=== PATIENT | male | born 1935 | race Caucasian/White ===

== ENCOUNTER 2018-03-31 08:52 | Inpatient (IN) | payer MEDICARE ==
[2018-03-31] MEDS ORDERED: Tuberculin, PPD 5 Units/0.1 ML 1 ML MDV IDERM ONE (15:25)
[2018-03-31] MEDS ORDERED: Magnesium Hydroxide 400 MG/5 ML Susp 30 ML Cup PO PRN (15:26)
--- NOTE | 2018-03-31 15:32 | PCM.HP ---
H&P History of Present Illness - General Date of Service: 03/31/18 Admit Problem/Dx: Admission Diagnosis/Problem Admission Diagnosis/Problem Weakness Source of Information: Patient, Old Records, Other (discharge forms) - History of Present Illness Initial Comments - Free Text/Narative: This is a 83yo M to be admitted to [facility] bed for post-op left knee arthroplasty. Patient is aware he is at the hospital but not exactly sure the town although he did live in [place] for most of his life and now in [place]. He is unsure of the date or time. He is here with his daughter who has bought the [employer] and will be managing that from now. Location: Reports: Lower Extremity, Left Worsens with: Reports: Movement Associated Symptoms: Reports: Weakness - Related Data Allergies/Adverse Reactions: Allergies Allergy/AdvReac Type Severity Reaction Status Date / Time No Known Allergies Allergy Verified 03/31/18 10:53 Home Medications: Home Meds Acetaminophen [Tylenol] 650 mg PO Q4HR PRN 03/31/18 [History] Aspirin [Adult Low Dose Aspirin EC] 81 mg PO DAILY 03/31/18 [History] Cyanocobalamin (Vitamin B-12) [B-12] 1,000 mcg PO DAILY 03/31/18 [History] Diclofenac Sodium 4 gm TP QID 03/31/18 [History] Donepezil [Aricept] 10 mg PO BEDTIME 03/31/18 [History] Enoxaparin Sodium [Lovenox] 40 mg SQ DAILY 03/31/18 [History] Furosemide 20 mg PO DAILY 03/31/18 [History] Magnesium Hydroxide [Milk of Magnesia] 30 ml PO DAILY PRN 03/31/18 [History] Melatonin 3 mg PO BEDTIME 03/31/18 [History] Meloxicam 15 mg PO DAILY 03/31/18 [History] Metoprolol Tartrate 12.5 mg PO BID 03/31/18 [History] Omeprazole [priLOSEC OTC] 20 mg PO DAILY 03/31/18 [History] Simvastatin [Zocor] 10 mg PO BEDTIME 03/31/18 [History] Triamcinolone Acetonide [IJD: Triamcinolone Acetonide 0.1% Crm] 1 gm .XX BID 12/18 [History] traMADol [Ultram] 50 mg PO Q6H PRN MDD 400mg 03/31/18 [History] Social & Family History - Tobacco Use Smoking Status *Q: Former Smoker Used Tobacco, but Quit: Yes Month/Year Tobacco Last Used: 2007 - Caffeine Use Caffeine Use: Reports: Coffee Other Caffeine Use: 1 pot a day (12 cups) - Recreational Drug Use Recreational Drug Use: No H&P Review of Systems - Review of Systems: Review Of Systems: ROS reveals no pertinent complaints other than HPI. Exam - Exam Exam: See Below - Vital Signs Weight: 73.663 kg - Exam General: Alert, Cooperative. No: Oriented HEENT: PERRLA, Conjunctiva Clear, EACs Clear, EOMI Neck: Supple, Trachea Midline Lungs: Clear to Auscultation, Normal Respiratory Effort Cardiovascular: Regular Rate, Regular Rhythm GI/Abdominal Exam: Normal Bowel Sounds Back Exam: Normal Inspection Extremities: Pedal Edema (1+) Peripheral Pulses: 2+: Dorsalis Pedis (L), Dorsalis Pedis (R) Skin: Warm, Dry, Intact Neurological: Cranial Nerves Intact Neuro Extensive - Mental Status: Alert, Normal Mood/Affect - Problem List (1) Status post left knee replacement SNOMED Code(s): 1788395962757, 3281946362296 ICD Code: Z96.652 - PRESENCE OF LEFT ARTIFICIAL KNEE JOINT Status: Acute Current Visit: Yes (2) Weakness SNOMED Code(s): 59892378 ICD Code: R53.1 - WEAKNESS Status: Acute Current Visit: Yes (3) Dementia SNOMED Code(s): 52839353 ICD Code: F03.90 - UNSPECIFIED DEMENTIA WITHOUT BEHAVIORAL DISTURBANCE Status: Acute Current Visit: Yes (4) HTN (hypertension) SNOMED Code(s): 82224519 ICD Code: I10 - ESSENTIAL (PRIMARY) HYPERTENSION Status: Chronic Priority : Low Current Visit: Yes Qualifiers: Hypertension type: essential hypertension Qualified Code(s): I10 - Essential (primary) hypertension (5) COPD (chronic obstructive pulmonary disease) SNOMED Code(s): 04824391 ICD Code: J44.9 - CHRONIC OBSTRUCTIVE PULMONARY DISEASE, UNSPECIFIED Status : Chronic Priority: Medium Current Visit: Yes Qualifiers: Chronic bronchitis type: unspecified Problem List Initiated/Reviewed/Updated: Yes Orders Last 24hrs: Active Orders 24 hr Category Date Time Status Patient Status [ADT] Routine ADT 03/31/18 15:25 Ordered Consult to Property Maintenance Supervisor [CONS] Routine Cons 03/31/18 15:25 Ordered Consult to Home Health [CONS] Routine Cons 03/31/18 15:25 Ordered Consult to Infection Prevention [CONS] Routine Cons 03/31/18 15:25 Ordered Consult to Plastic Mould Maker [CONS] Routine Cons 03/31/18 15:25 Ordered OT Evaluation and Treatment [CONS] Routine Cons 03/31/18 15:25 Ordered PT Evaluation and Treatment [CONS] Routine Cons 03/31/18 15:25 Ordered CULTURE MRSA SURVEY [RM] Routine Lab 03/31/18 15:15 Ordered Acetaminophen [Tylenol] Med 03/31/18 15:26 Ordered 650 mg PO Q4HR PRN Aspirin [Halfprin] Med 04/01/18 08:00 Ordered 81 mg PO DAILY Cyanocobalamin (Vitamin B12) [Vitamin B12] Med 04/01/18 08:00 Ordered 1,000 mcg PO DAILY Diclofenac Sodium [Diclofenac Sodium] Med 03/31/18 16:00 Ordered 4 gm TP QID Donepezil [Aricept] Med 03/31/18 20:00 Ordered 10 mg PO BEDTIME Enoxaparin [Lovenox] Med 04/01/18 08:00 Ordered 40 mg SUBCUT DAILY Furosemide [Lasix] Med 04/01/18 08:00 Ordered 20 mg PO DAILY Magnesium Hydroxide [Milk of Magnesia] Med 03/31/18 15:26 Ordered 30 ml PO DAILY PRN Melatonin Med 03/31/18 20:00 Ordered 3 mg PO BEDTIME Meloxicam [Mobic] Med 04/01/18 08:00 Ordered 7.5 mg PO DAILY Metoprolol Tartrate [Lopressor] Med 03/31/18 20:00 Ordered 12.5 mg PO BID Omeprazole [priLOSEC OTC] Med 04/01/18 08:00 Ordered 20 mg PO DAILY Simvastatin [Zocor] Med 03/31/18 20:00 Ordered 10 mg PO BEDTIME Triamcinolone Acetonide [Triamcinolone Acetonide 0.1% Med 03/31/18 20:00 Ordered Crm] 1 gm .XX BID Tuberculin, PPD [Aplisol] Med 03/31/18 15:25 Once 5 unit IDERM ONETIME ONE traMADol [Ultram] Med 03/31/18 15:26 Ordered 50 mg PO Q6H PRN Medication Orders Tuberculin PPD (Aplisol) 5 unit IDERM ONETIME ONE Stop: 03/31/18 15:26 Assessment/Plan Comment:: S/P Left knee Arthroplasty - continue PT/OT and rehab. Continue lovenox daily. Counseled on using call light for assistance and any ambulation or transfer. - Continue on tramadol 25mg QID as directed HTN - controlled COPD - Stable HLP - on atorvastatin. Dementia - Continue on current medications.
[2018-03-31] MEDS: Diclofenac Sodium 1% Gel 100 GM Tube TOP SCH ×2 (17:06→20:13)
[2018-03-31] MEDS ORDERED: Triamcinolone Acetonide 0.1% Crm 15 GM Tube TOP SCH (20:00)
[2018-03-31] MEDS: Donepezil 5 MG Tab PO SCH (20:07)
[2018-03-31] MEDS: Simvastatin 10 MG Tab PO SCH (20:07)
[2018-03-31] MEDS: Melatonin 3 MG Tab PO SCH (20:07)
[2018-03-31] MEDS: Metoprolol Tartrate 25 MG Tab PO SCH (20:09)
[2018-03-31] MEDS: traMADol 50 MG Tab PO PRN (20:22)
[2018-04-01] MEDS: traMADol 50 MG Tab PO PRN ×3 (06:30→18:36)
[2018-04-01] MEDS: Omeprazole 20 MG Cap.CR PO SCH (06:30)
[2018-04-01] MEDS ORDERED: Triamcinolone Acetonide 0.1% Crm 15 GM Tube TOP PRN (08:00)
[2018-04-01] MEDS: Enoxaparin 40 MG/0.4 ML Syringe SUBCUT SCH (08:35)
[2018-04-01] MEDS: Aspirin 81 MG Tab.EC PO SCH (08:36)
[2018-04-01] MEDS: Furosemide 20 MG Tab PO SCH (08:36)
[2018-04-01] MEDS: Cyanocobalamin (Vitamin B12) 1,000 MCG Tab PO SCH (08:37)
[2018-04-01] MEDS: Metoprolol Tartrate 25 MG Tab PO SCH ×2 (08:37→20:03)
[2018-04-01] MEDS ORDERED: Tuberculin, PPD 5 Units/0.1 ML 1 ML MDV IDERM ONE (10:00)
[2018-04-01] MEDS: Melatonin 3 MG Tab PO SCH (20:03)
[2018-04-01] MEDS: Donepezil 5 MG Tab PO SCH (20:03)
[2018-04-01] MEDS: Simvastatin 10 MG Tab PO SCH (20:07)
[2018-04-01] MEDS: Diclofenac Sodium 1% Gel 100 GM Tube TOP SCH (20:12)
[2018-04-02] MEDS: traMADol 50 MG Tab PO PRN ×3 (05:21→20:47)
[2018-04-02] MEDS: Omeprazole 20 MG Cap.CR PO SCH (06:56)
[2018-04-02] MEDS: Aspirin 81 MG Tab.EC PO SCH (08:15)
[2018-04-02] MEDS: Enoxaparin 40 MG/0.4 ML Syringe SUBCUT SCH (08:15)
[2018-04-02] MEDS: Furosemide 20 MG Tab PO SCH (08:16)
[2018-04-02] MEDS: Cyanocobalamin (Vitamin B12) 1,000 MCG Tab PO SCH (08:17)
[2018-04-02] MEDS: Metoprolol Tartrate 25 MG Tab PO SCH ×2 (08:17→19:26)
[2018-04-02] MEDS: Tamsulosin 0.4 MG Cap.ER PO SCH (10:02)
[2018-04-02] MEDS: Acetaminophen 325 MG Tab PO PRN (17:04)
[2018-04-02] MEDS ORDERED: Donepezil 10 MG Tab ONE (19:25)
[2018-04-02] MEDS: Melatonin 3 MG Tab PO SCH (19:26)
[2018-04-02] MEDS: Donepezil 5 MG Tab PO SCH (19:26)
[2018-04-02] MEDS: Simvastatin 10 MG Tab PO SCH (19:27)
[2018-04-03] MEDS: Omeprazole 20 MG Cap.CR PO SCH (06:03)
[2018-04-03] MEDS: Aspirin 81 MG Tab.EC PO SCH (07:26)
[2018-04-03] MEDS: traMADol 50 MG Tab PO PRN ×2 (07:26→19:54)
[2018-04-03] MEDS: Furosemide 20 MG Tab PO SCH (07:26)
[2018-04-03] MEDS: Cyanocobalamin (Vitamin B12) 1,000 MCG Tab PO SCH (07:29)
[2018-04-03] MEDS: Metoprolol Tartrate 25 MG Tab PO SCH ×2 (07:29→19:55)
[2018-04-03] MEDS: Enoxaparin 40 MG/0.4 ML Syringe SUBCUT SCH (07:31)
[2018-04-03] MEDS: Tamsulosin 0.4 MG Cap.ER PO SCH (10:12)
[2018-04-03] MEDS: Diclofenac Sodium 1% Gel 100 GM Tube TOP SCH ×3 (12:30→19:56)
[2018-04-03] MEDS: Donepezil 5 MG Tab PO SCH (19:54)
[2018-04-03] MEDS: Simvastatin 10 MG Tab PO SCH (19:54)
[2018-04-03] MEDS: Melatonin 3 MG Tab PO SCH (19:54)
[2018-04-03] MEDS: Acetaminophen 325 MG Tab PO PRN (19:55)
[2018-04-04] MEDS: Aspirin 81 MG Tab.EC PO SCH (09:18)
[2018-04-04] MEDS: Furosemide 20 MG Tab PO SCH (09:18)
[2018-04-04] MEDS: Cyanocobalamin (Vitamin B12) 1,000 MCG Tab PO SCH (09:19)
[2018-04-04] MEDS: Enoxaparin 40 MG/0.4 ML Syringe SUBCUT SCH (09:19)
[2018-04-04] MEDS: Tamsulosin 0.4 MG Cap.ER PO SCH (09:19)
[2018-04-04] MEDS: Diclofenac Sodium 1% Gel 100 GM Tube TOP SCH ×4 (09:26→19:32)
[2018-04-04] MEDS: Metoprolol Tartrate 25 MG Tab PO SCH ×2 (10:13→19:29)
[2018-04-04] MEDS: Omeprazole 20 MG Cap.CR PO SCH (10:14)
[2018-04-04] MEDS: Donepezil 5 MG Tab PO SCH (19:25)
[2018-04-04] MEDS: Melatonin 3 MG Tab PO SCH (19:26)
[2018-04-04] MEDS: Acetaminophen 325 MG Tab PO PRN (19:26)
[2018-04-04] MEDS: Simvastatin 10 MG Tab PO SCH (19:27)
[2018-04-04] MEDS: traMADol 50 MG Tab PO PRN (19:28)
[2018-04-05] MEDS: Diclofenac Sodium 1% Gel 100 GM Tube TOP SCH ×4 (08:15→20:00)
[2018-04-05] MEDS: Furosemide 20 MG Tab PO SCH (08:15)
[2018-04-05] MEDS: Enoxaparin 40 MG/0.4 ML Syringe SUBCUT SCH (08:15)
[2018-04-05] MEDS: Cyanocobalamin (Vitamin B12) 1,000 MCG Tab PO SCH (08:16)
[2018-04-05] MEDS: Metoprolol Tartrate 25 MG Tab PO SCH ×2 (08:16→19:30)
[2018-04-05] MEDS: Omeprazole 20 MG Cap.CR PO SCH (08:16)
[2018-04-05] MEDS: Aspirin 81 MG Tab.EC PO SCH (08:16)
[2018-04-05] MEDS: Tamsulosin 0.4 MG Cap.ER PO SCH (10:04)
[2018-04-05] MEDS ORDERED: LORazepam 1 MG Tab PO ONE (19:10)
[2018-04-05] MEDS: Melatonin 3 MG Tab PO SCH (19:26)
[2018-04-05] MEDS: Donepezil 5 MG Tab PO SCH (19:26)
[2018-04-05] MEDS: Simvastatin 10 MG Tab PO SCH (19:28)
[2018-04-05] MEDS: Acetaminophen 325 MG Tab PO PRN (19:28)
[2018-04-05] MEDS: traMADol 50 MG Tab PO PRN (20:48)
[2018-04-06] MEDS: Omeprazole 20 MG Cap.CR PO SCH (06:04)
[2018-04-06] MEDS: Aspirin 81 MG Tab.EC PO SCH (07:20)
[2018-04-06] MEDS: Furosemide 20 MG Tab PO SCH (07:21)
[2018-04-06] MEDS: Cyanocobalamin (Vitamin B12) 1,000 MCG Tab PO SCH (07:21)
[2018-04-06] MEDS: Enoxaparin 40 MG/0.4 ML Syringe SUBCUT SCH (07:23)
[2018-04-06] MEDS: Metoprolol Tartrate 25 MG Tab PO SCH (07:23)
[2018-04-06] MEDS: Diclofenac Sodium 1% Gel 100 GM Tube TOP SCH ×2 (07:24→13:29)
[2018-04-06] MEDS: traMADol 50 MG Tab PO PRN (09:15)
[2018-04-06] MEDS: Tamsulosin 0.4 MG Cap.ER PO SCH (09:56)
--- NOTE | 2018-04-06 14:30 | PCM.PN ---
- General Info Date of Service: 04/06/18 Subjective Update: This is an 83 yo M who is alert but orientated only to reading the charted date on the wall. He denies any concerns today. He does not recall why he is here but understands he is in the hospital in [place]. Functional Status: Reports: Pain Controlled, Tolerating Diet - Review of Systems General: Reports: Weakness HEENT: Reports: No Symptoms Pulmonary: Reports: No Symptoms Cardiovascular: Reports: No Symptoms Gastrointestinal: Reports: No Symptoms Genitourinary: Reports: No Symptoms Musculoskeletal: Reports: No Symptoms Skin: Reports: No Symptoms - Patient Data Vitals - Most Recent: Last Vital Signs Temp 36.7 C 04/06/18 07:36 Pulse 58 L 04/06/18 07:36 Resp 18 04/06/18 07:36 BP 123/53 L 04/06/18 07:36 Pulse Ox 96 04/06/18 07:36 Weight - Most Recent: 69.91 kg I&O - Last 24 Hours: Intake & Output 04/05/18 04/06/18 04/06/18 22:59 06:59 14:59 Intake Total 200 Output Total 400 Balance -200 Lab Results Last 24 Hours: Laboratory Results - last 24 hr 04/06/18 04/06/18 Range/Units 05:53 09:00 WBC 5.5 (4.0-11.0) K/uL RBC 3.20 L (4.50-6.50) M/uL Hgb 9.0 L D (13.0-18.0) g/dL Hct 28.2 L D (40.0-54.0) % MCV 88 (76-96) fL MCH 28.1 (27.0-32.0) pg MCHC 31.9 (31.0-35.0) g/dL RDW 12.8 (11.0-16.0) % Plt Count 213 D (150-400) K/uL MPV 9.6 (6.0-10.0) fL Neut % (Auto) 65.2 (45.0-70.0) % Lymph % (Auto) 19.4 L (20.0-40.0) % Park % (Auto) 7.7 (3.0-10.0) % Eos % (Auto) 6.8 H (1.0-5.0) % Baso % (Auto) 0.9 H (0.0-0.5) % Neut # (Auto) 3.57 (2.00-7.50) K/uL Lymph # (Auto) 1.06 L (1.50-4.00) K/uL [place] # (Auto) 0.42 (0.20-0.80) K/uL Eos # (Auto) 0.37 (0.04-0.40) K/uL Baso # (Auto) 0.05 (0.02-0.10) K/uL Urine Color Yellow Urine Appearance Clear (CLEAR) Urine pH 7.5 (5.0-8.0) Ur Specific Palms 1.020 (1.003-1.030) Urine Protein Trace H (NEGATIVE) mg/dL Urine Glucose (UA) Negative (NEGATIVE) mg/dL Urine Ketones Negative (NEGATIVE) mg/dL Urine Occult Blood Negative (NEGATIVE) Urine Nitrite Negative (NEGATIVE) Urine Bilirubin Negative (NEGATIVE) Urine Urobilinogen 1.0 (0.2-1.0) E.U./dL Ur Leukocyte Esterase Negative (NEGATIVE) Urine RBC Not seen /HPF Urine WBC Not seen /HPF Ur Squamous Epith Cells Rare /HPF Urine Bacteria Rare /HPF Med Orders - Current: Current Medications Acetaminophen (Tylenol) 650 mg PO Q4HR PRN PRN Reason: Pain Last Admin: 04/05/18 19:28 Dose: 650 mg Aspirin (Halfprin) 81 mg PO DAILY [facility] Last Admin: 04/06/18 07:20 Dose: 81 mg Cyanocobalamin (Vitamin B12) 1,000 mcg PO DAILY [facility] Last Admin: 04/06/18 07:21 Dose: 1,000 mcg Diclofenac Sodium (Voltaren 1% Gel) 100 gm TOP QID [facility] Last Admin: 04/06/18 13:29 Dose: Not Given Donepezil HCl (Aricept) 10 mg PO BEDTIME [facility] Last Admin: 04/05/18 19:26 Dose: 10 mg Enoxaparin Sodium (Lovenox) 40 mg SUBCUT DAILY [facility] Stop: 04/14/18 08:01 Last Admin: 04/06/18 07:23 Dose: 40 mg Furosemide (Lasix) 20 mg PO DAILY [facility] Last Admin: 04/06/18 07:21 Dose: 20 mg Magnesium Hydroxide (Milk Of Magnesia) 30 ml PO DAILY PRN PRN Reason: Constipation Melatonin (Melatonin) 3 mg PO BEDTIME [facility] Last Admin: 04/05/18 19:26 Dose: 3 mg Meloxicam (Mobic) 7.5 mg PO DAILY [facility] Last Admin: 04/06/18 07:21 Dose: 7.5 mg Metoprolol Tartrate (Lopressor) 12.5 mg PO BID [facility] Last Admin: 04/06/18 07:23 Dose: 12.5 mg Omeprazole (Omeprazole) 20 mg PO ACBREAKFAST [facility] Last Admin: 04/06/18 06:04 Dose: 20 mg Simvastatin (Zocor) 10 mg PO BEDTIME [facility] Last Admin: 04/05/18 19:28 Dose: 10 mg Tamsulosin HCl (Flomax) 0.4 mg PO PCBREAKFAST [facility] Last Admin: 04/06/18 09:56 Dose: 0.4 mg Tramadol HCl (Ultram) 50 mg PO Q6H PRN PRN Reason: Pain Last Admin: 04/06/18 09:15 Dose: 50 mg Triamcinolone Acetonide (Triamcinolone Acetonide 0.1% Crm) 0 gm TOP BID PRN PRN Reason: Dryness Discontinued Medications Diclofenac Sodium (Voltaren 1% Gel) 0 gm TOP QID [facility] Last Admin: 04/01/18 20:12 Dose: Not Given Donepezil HCl (Aricept) Confirm Administered Dose 10 mg .ROUTE .STK-MED ONE Stop: 04/02/18 19:26 Last Admin: 04/02/18 20:09 Dose: Not Given Lorazepam (Ativan) 1 mg PO ONETIME ONE Stop: 04/05/18 19:11 Last Admin: 04/05/18 19:30 Dose: 1 mg Triamcinolone Acetonide (Triamcinolone Acetonide 0.1% Crm) 0 gm TOP BID [facility] Stop: 04/01/18 00:08 Last Admin: 03/31/18 20:14 Dose: Not Given Tuberculin PPD (Aplisol) 5 unit IDERM ONETIME ONE Stop: 03/31/18 15:26 Last Admin: 03/31/18 22:44 Dose: Not Given Tuberculin PPD (Aplisol) 5 unit IDERM ONETIME ONE Stop: 04/01/18 10:01 Last Admin: 04/01/18 08:59 Dose: 5 unit - Exam General: Alert, Cooperative HEENT: Pupils Equal, Pupils Reactive, EOMI Lungs: Clear to Auscultation, Normal Respiratory Effort Cardiovascular: Regular Rate, Regular Rhythm GI/Abdominal Exam: Normal Bowel Sounds Back Exam: Normal Inspection Peripheral Pulses: 2+: Dorsalis Pedis (L), Dorsalis Pedis (R) Skin: Warm, Dry, Intact - Problem List & Annotations (1) Status post left knee replacement SNOMED Code(s): 7859861587303, 3670687367020 Code(s): Z96.652 - PRESENCE OF LEFT ARTIFICIAL KNEE JOINT Status: Acute Current Visit: Yes (2) Weakness SNOMED Code(s): 18291492 Code(s): R53.1 - WEAKNESS Status: Acute Current Visit: Yes (3) Dementia SNOMED Code(s): 43986600 Code(s): F03.90 - UNSPECIFIED DEMENTIA WITHOUT BEHAVIORAL DISTURBANCE Status: Acute Current Visit: Yes (4) HTN (hypertension) SNOMED Code(s): 15807046 Code(s): I10 - ESSENTIAL (PRIMARY) HYPERTENSION Status: Chronic Priority : Low Current Visit: Yes Qualifiers: Hypertension type: essential hypertension Qualified Code(s): I10 - Essential (primary) hypertension (5) COPD (chronic obstructive pulmonary disease) SNOMED Code(s): 96578657 Code(s): J44.9 - CHRONIC OBSTRUCTIVE PULMONARY DISEASE, UNSPECIFIED Status : Chronic Priority: Medium Current Visit: Yes Qualifiers: Chronic bronchitis type: unspecified - Problem List Review Problem List Initiated/Reviewed/Updated: Yes - Plan Plan:: S/P Left knee Arthroplasty - continue PT/OT and rehab. Continue lovenox daily. Counseled on using call light for assistance and any ambulation or transfer. - Continue on tramadol 25mg QID as directed HTN - controlled COPD - Stable HLP - on atorvastatin. Dementia - Continue on current medications. 04/06/18 No changes to plan of care. We will continue to have PT/OT aid in his recovery and rehab. Chronic dementia.
[2018-04-07] MEDS: Diclofenac Sodium 1% Gel 100 GM Tube TOP SCH ×6 (03:25→20:29)
[2018-04-07] MEDS: Melatonin 3 MG Tab PO SCH ×2 (03:26→19:47)
[2018-04-07] MEDS: Metoprolol Tartrate 25 MG Tab PO SCH ×3 (03:26→19:49)
[2018-04-07] MEDS: Simvastatin 10 MG Tab PO SCH ×2 (03:26→19:50)
[2018-04-07] MEDS: Donepezil 5 MG Tab PO SCH ×2 (03:26→19:47)
[2018-04-07] MEDS: Omeprazole 20 MG Cap.CR PO SCH (07:00)
[2018-04-07] MEDS: Cyanocobalamin (Vitamin B12) 1,000 MCG Tab PO SCH (07:44)
[2018-04-07] MEDS: Aspirin 81 MG Tab.EC PO SCH (07:45)
[2018-04-07] MEDS: Enoxaparin 40 MG/0.4 ML Syringe SUBCUT SCH (07:49)
[2018-04-07] MEDS: Furosemide 20 MG Tab PO SCH (07:49)
[2018-04-07] MEDS: traMADol 50 MG Tab PO PRN (08:01)
[2018-04-07] MEDS: Tamsulosin 0.4 MG Cap.ER PO SCH (09:29)
[2018-04-08] MEDS: Aspirin 81 MG Tab.EC PO SCH (07:37)
[2018-04-08] MEDS: Cyanocobalamin (Vitamin B12) 1,000 MCG Tab PO SCH (07:37)
[2018-04-08] MEDS: Furosemide 20 MG Tab PO SCH (07:37)
[2018-04-08] MEDS: Enoxaparin 40 MG/0.4 ML Syringe SUBCUT SCH (07:37)
[2018-04-08] MEDS: Omeprazole 20 MG Cap.CR PO SCH (07:38)
[2018-04-08] MEDS: Metoprolol Tartrate 25 MG Tab PO SCH ×2 (07:38→19:56)
[2018-04-08] MEDS: Tamsulosin 0.4 MG Cap.ER PO SCH (07:42)
[2018-04-08] MEDS: Diclofenac Sodium 1% Gel 100 GM Tube TOP SCH ×4 (07:42→19:57)
[2018-04-08] MEDS: traMADol 50 MG Tab PO PRN ×2 (08:58→20:01)
[2018-04-08] MEDS: Simvastatin 10 MG Tab PO SCH (19:56)
[2018-04-08] MEDS: Donepezil 5 MG Tab PO SCH (19:56)
[2018-04-08] MEDS: Melatonin 3 MG Tab PO SCH (19:56)
[2018-04-09] MEDS: Omeprazole 20 MG Cap.CR PO SCH (06:24)
[2018-04-09] MEDS: Aspirin 81 MG Tab.EC PO SCH (07:22)
[2018-04-09] MEDS: Furosemide 20 MG Tab PO SCH (07:22)
[2018-04-09] MEDS: Tamsulosin 0.4 MG Cap.ER PO SCH (07:22)
[2018-04-09] MEDS: Cyanocobalamin (Vitamin B12) 1,000 MCG Tab PO SCH (07:22)
[2018-04-09] MEDS: Metoprolol Tartrate 25 MG Tab PO SCH ×2 (07:23→19:47)
[2018-04-09] MEDS: Enoxaparin 40 MG/0.4 ML Syringe SUBCUT SCH (07:23)
[2018-04-09] MEDS: Diclofenac Sodium 1% Gel 100 GM Tube TOP SCH ×3 (07:23→19:52)
[2018-04-09] MEDS: Donepezil 5 MG Tab PO SCH (19:51)
[2018-04-09] MEDS: Melatonin 3 MG Tab PO SCH (19:51)
[2018-04-09] MEDS: Simvastatin 10 MG Tab PO SCH (19:52)
[2018-04-09] MEDS: traMADol 50 MG Tab PO PRN (19:53)
[2018-04-10] MEDS: Omeprazole 20 MG Cap.CR PO SCH ×2 (06:39→07:13)
[2018-04-10] MEDS: Enoxaparin 40 MG/0.4 ML Syringe SUBCUT SCH (08:22)
[2018-04-10] MEDS: Metoprolol Tartrate 25 MG Tab PO SCH ×2 (08:23→20:31)
[2018-04-10] MEDS: Cyanocobalamin (Vitamin B12) 1,000 MCG Tab PO SCH (08:23)
[2018-04-10] MEDS: Furosemide 20 MG Tab PO SCH (08:23)
[2018-04-10] MEDS: Aspirin 81 MG Tab.EC PO SCH (08:24)
[2018-04-10] MEDS: traMADol 50 MG Tab PO PRN ×2 (08:24→14:30)
[2018-04-10] MEDS: Tamsulosin 0.4 MG Cap.ER PO SCH (08:25)
[2018-04-10] MEDS: Diclofenac Sodium 1% Gel 100 GM Tube TOP SCH ×4 (08:45→20:34)
[2018-04-10] MEDS: Acetaminophen 325 MG Tab PO PRN (20:30)
[2018-04-10] MEDS: Donepezil 5 MG Tab PO SCH (20:30)
[2018-04-10] MEDS: Melatonin 3 MG Tab PO SCH (20:30)
[2018-04-10] MEDS: Simvastatin 10 MG Tab PO SCH (20:34)
[2018-04-11] MEDS: Omeprazole 20 MG Cap.CR PO SCH (06:14)
[2018-04-11] MEDS: Aspirin 81 MG Tab.EC PO SCH (07:35)
[2018-04-11] MEDS: Tamsulosin 0.4 MG Cap.ER PO SCH (07:35)
[2018-04-11] MEDS: Metoprolol Tartrate 25 MG Tab PO SCH ×2 (07:36→20:20)
[2018-04-11] MEDS: Furosemide 20 MG Tab PO SCH (07:36)
[2018-04-11] MEDS: Cyanocobalamin (Vitamin B12) 1,000 MCG Tab PO SCH (07:39)
[2018-04-11] MEDS: Diclofenac Sodium 1% Gel 100 GM Tube TOP SCH ×4 (07:41→20:14)
[2018-04-11] MEDS: Enoxaparin 40 MG/0.4 ML Syringe SUBCUT SCH (07:42)
[2018-04-11] MEDS: traMADol 50 MG Tab PO PRN (17:32)
[2018-04-11] MEDS: Melatonin 3 MG Tab PO SCH (20:17)
[2018-04-11] MEDS: Simvastatin 10 MG Tab PO SCH (20:17)
[2018-04-11] MEDS: Donepezil 5 MG Tab PO SCH (20:19)
[2018-04-11] MEDS: Acetaminophen 325 MG Tab PO PRN (20:21)
[2018-04-12] MEDS: Omeprazole 20 MG Cap.CR PO SCH (06:51)
[2018-04-12] MEDS: Enoxaparin 40 MG/0.4 ML Syringe SUBCUT SCH (08:08)
[2018-04-12] MEDS: Cyanocobalamin (Vitamin B12) 1,000 MCG Tab PO SCH (08:08)
[2018-04-12] MEDS: Diclofenac Sodium 1% Gel 100 GM Tube TOP SCH ×4 (08:08→19:51)
[2018-04-12] MEDS: Tamsulosin 0.4 MG Cap.ER PO SCH (08:09)
[2018-04-12] MEDS: Furosemide 20 MG Tab PO SCH (08:09)
[2018-04-12] MEDS: Acetaminophen 325 MG Tab PO PRN ×2 (08:09→19:49)
[2018-04-12] MEDS: Aspirin 81 MG Tab.EC PO SCH (08:09)
[2018-04-12] MEDS: Metoprolol Tartrate 25 MG Tab PO SCH ×2 (08:11→19:48)
[2018-04-12] MEDS: Donepezil 5 MG Tab PO SCH (19:48)
[2018-04-12] MEDS: Simvastatin 10 MG Tab PO SCH (19:48)
[2018-04-12] MEDS: Melatonin 3 MG Tab PO SCH (19:48)
[2018-04-13] MEDS: Omeprazole 20 MG Cap.CR PO SCH (06:00)
[2018-04-13] MEDS: Cyanocobalamin (Vitamin B12) 1,000 MCG Tab PO SCH (08:18)
[2018-04-13] MEDS: Metoprolol Tartrate 25 MG Tab PO SCH ×2 (08:19→19:48)
[2018-04-13] MEDS: Tamsulosin 0.4 MG Cap.ER PO SCH (08:19)
[2018-04-13] MEDS: Aspirin 81 MG Tab.EC PO SCH (08:25)
[2018-04-13] MEDS: Furosemide 20 MG Tab PO SCH (08:25)
[2018-04-13] MEDS: Enoxaparin 40 MG/0.4 ML Syringe SUBCUT SCH (08:26)
[2018-04-13] MEDS: Diclofenac Sodium 1% Gel 100 GM Tube TOP SCH ×4 (11:39→19:51)
[2018-04-13] MEDS ORDERED: Acetaminophen 325 MG Tab ONE (18:05)
[2018-04-13] MEDS: Acetaminophen 325 MG Tab PO PRN (18:07)
[2018-04-13] MEDS: Donepezil 5 MG Tab PO SCH (19:47)
[2018-04-13] MEDS: Simvastatin 10 MG Tab PO SCH (19:49)
[2018-04-13] MEDS: Melatonin 3 MG Tab PO SCH (19:49)
[2018-04-14] MEDS: Omeprazole 20 MG Cap.CR PO SCH (06:45)
[2018-04-14] MEDS: Aspirin 81 MG Tab.EC PO SCH (07:19)
[2018-04-14] MEDS: Enoxaparin 40 MG/0.4 ML Syringe SUBCUT SCH (07:21)
[2018-04-14] MEDS: Furosemide 20 MG Tab PO SCH (07:21)
[2018-04-14] MEDS: Cyanocobalamin (Vitamin B12) 1,000 MCG Tab PO SCH (07:22)
[2018-04-14] MEDS: Metoprolol Tartrate 25 MG Tab PO SCH ×3 (07:22→19:55)
[2018-04-14] MEDS: Tamsulosin 0.4 MG Cap.ER PO SCH (07:22)
[2018-04-14] MEDS: Diclofenac Sodium 1% Gel 100 GM Tube TOP SCH ×4 (07:27→19:54)
--- NOTE | 2018-04-14 13:55 | PCM.PN ---
- General Info Date of Service: 04/14/18 Functional Status: Reports: Pain Controlled, Tolerating Diet - Review of Systems General: Reports: Weakness HEENT: Reports: No Symptoms Pulmonary: Reports: No Symptoms Cardiovascular: Reports: No Symptoms Gastrointestinal: Reports: No Symptoms Genitourinary: Reports: No Symptoms Musculoskeletal: Reports: No Symptoms Neurological: Reports: Weakness - Patient Data Vitals - Most Recent: Last Vital Signs Temp 37.5 C 04/13/18 22:00 Pulse 68 04/14/18 07:30 Resp 17 04/13/18 19:35 BP 125/47 L 04/14/18 07:30 Pulse Ox 94 L 04/13/18 19:35 Weight - Most Recent: 71.486 kg Lab Results Last 24 Hours: Laboratory Results - last 24 hr 04/13/18 04/13/18 Range/Units 19:32 19:32 WBC 8.0 D (4.0-11.0) K/uL RBC 3.24 L (4.50-6.50) M/uL Hgb 8.8 L (13.0-18.0) g/dL Hct 28.2 L (40.0-54.0) % MCV 87 (76-96) fL MCH 27.2 (27.0-32.0) pg MCHC 31.2 (31.0-35.0) g/dL RDW 13.2 (11.0-16.0) % Plt Count 208 (150-400) K/uL MPV 10.1 H (6.0-10.0) fL Neut % (Auto) 83.1 H (45.0-70.0) % Lymph % (Auto) 8.0 L (20.0-40.0) % [place] % (Auto) 7.5 (3.0-10.0) % Eos % (Auto) 1.0 (1.0-5.0) % Baso % (Auto) 0.4 (0.0-0.5) % Neut # (Auto) 6.64 (2.00-7.50) K/uL Lymph # (Auto) 0.64 L (1.50-4.00) K/uL [place] # (Auto) 0.60 (0.20-0.80) K/uL Eos # (Auto) 0.08 (0.04-0.40) K/uL Baso # (Auto) 0.03 (0.02-0.10) K/uL Sodium 141 (136-145) mmol/L Potassium 4.2 (3.5-5.1) mmol/L Chloride 104 (98-107) mmol/L Carbon Dioxide 28.9 (21.0-32.0) mmol/L Anion Gap 12.3 (5.0-15.0) mmol/L BUN 19 (8-26) mg/dL Creatinine 1.18 (0.70-1.30) mg/dL Est Cr Clr Drug Dosing 36.83 mL/min Estimated GFR (MDRD) 59 L (>60) MLS/MIN BUN/Creatinine Ratio 16.1 (6-25) Glucose 157 H (74-100) mg/dL Calcium 8.6 (8.5-10.1) mg/dL Total Bilirubin 0.6 (0.0-1.0) mg/dL AST 17 (15-37) U/L ALT 26 (12-78) U/L Alkaline Phosphatase 103 (46-116) U/L Total Protein 6.4 (6.4-8.2) g/dL Albumin 3.1 L (3.4-5.0) g/dL Globulin 3.3 (2.2-4.2) g/dL Albumin/Globulin Ratio 0.9 (0.8-2.0) Med Orders - Current: Current Medications Acetaminophen (Tylenol) 650 mg PO Q4HR PRN PRN Reason: Pain Last Admin: 04/13/18 18:07 Dose: 650 mg Aspirin (Halfprin) 81 mg PO DAILY [facility] Last Admin: 04/14/18 07:19 Dose: 81 mg Cyanocobalamin (Vitamin B12) 1,000 mcg PO DAILY [facility] Last Admin: 04/14/18 07:22 Dose: 1,000 mcg Diclofenac Sodium (Voltaren 1% Gel) 100 gm TOP QID [facility] Last Admin: 04/14/18 13:09 Dose: Not Given Donepezil HCl (Aricept) 10 mg PO BEDTIME [facility] Last Admin: 04/13/18 19:47 Dose: 10 mg Furosemide (Lasix) 20 mg PO DAILY [facility] Last Admin: 04/14/18 07:21 Dose: 20 mg Magnesium Hydroxide (Milk Of Magnesia) 30 ml PO DAILY PRN PRN Reason: Constipation Melatonin (Melatonin) 3 mg PO BEDTIME [facility] Last Admin: 04/13/18 19:49 Dose: 3 mg Meloxicam (Mobic) 7.5 mg PO DAILY [facility] Last Admin: 04/14/18 07:19 Dose: 7.5 mg Metoprolol Tartrate (Lopressor) 12.5 mg PO BID [facility] Last Admin: 04/14/18 07:30 Dose: 12.5 mg Omeprazole (Omeprazole) 20 mg PO ACBREAKFAST [facility] Last Admin: 04/14/18 06:45 Dose: 20 mg Simvastatin (Zocor) 10 mg PO BEDTIME [facility] Last Admin: 04/13/18 19:49 Dose: 10 mg Tamsulosin HCl (Flomax) 0.4 mg PO DAILY [facility] Last Admin: 04/14/18 07:22 Dose: 0.4 mg Tramadol HCl (Ultram) 50 mg PO Q6H PRN PRN Reason: Pain Last Admin: 04/11/18 17:32 Dose: 50 mg Triamcinolone Acetonide (Triamcinolone Acetonide 0.1% Crm) 0 gm TOP BID PRN PRN Reason: Dryness Discontinued Medications Acetaminophen (Tylenol) Confirm Administered Dose 650 mg .ROUTE .STK-MED ONE Stop: 04/13/18 18:06 Last Admin: 04/13/18 19:29 Dose: Not Given Diclofenac Sodium (Voltaren 1% Gel) 0 gm TOP QID [facility] Last Admin: 04/01/18 20:12 Dose: Not Given Donepezil HCl (Aricept) Confirm Administered Dose 10 mg .ROUTE .STK-MED ONE Stop: 04/02/18 19:26 Last Admin: 04/02/18 20:09 Dose: Not Given Enoxaparin Sodium (Lovenox) 40 mg SUBCUT DAILY [facility] Stop: 04/14/18 08:01 Last Admin: 04/14/18 07:21 Dose: 40 mg Lorazepam (Ativan) 1 mg PO ONETIME ONE Stop: 04/05/18 19:11 Last Admin: 04/05/18 19:30 Dose: 1 mg Tamsulosin HCl (Flomax) 0.4 mg PO PCBREAKFAST [facility] Last Admin: 04/07/18 09:29 Dose: 0.4 mg Triamcinolone Acetonide (Triamcinolone Acetonide 0.1% Crm) 0 gm TOP BID [facility] Stop: 04/01/18 00:08 Last Admin: 03/31/18 20:14 Dose: Not Given Tuberculin PPD (Aplisol) 5 unit IDERM ONETIME ONE Stop: 03/31/18 15:26 Last Admin: 03/31/18 22:44 Dose: Not Given Tuberculin PPD (Aplisol) 5 unit IDERM ONETIME ONE Stop: 04/01/18 10:01 Last Admin: 04/01/18 08:59 Dose: 5 unit - Exam General: Alert, Cooperative HEENT: Pupils Equal, Pupils Reactive, EOMI Neck: Supple Lungs: Clear to Auscultation, Normal Respiratory Effort Cardiovascular: Regular Rate, Regular Rhythm Extremities: Normal Inspection Peripheral Pulses: 2+: Dorsalis Pedis (L), Dorsalis Pedis (R) Skin: Warm, Dry, Intact Wound/Incisions: Healing Well - Problem List & Annotations (1) Status post left knee replacement SNOMED Code(s): 3572625137609, 7960523597808 Code(s): Z96.652 - PRESENCE OF LEFT ARTIFICIAL KNEE JOINT Status: Acute Current Visit: Yes (2) Weakness SNOMED Code(s): 99909908 Code(s): R53.1 - WEAKNESS Status: Acute Current Visit: Yes (3) Dementia SNOMED Code(s): 22199111 Code(s): F03.90 - UNSPECIFIED DEMENTIA WITHOUT BEHAVIORAL DISTURBANCE Status: Acute Current Visit: Yes (4) HTN (hypertension) SNOMED Code(s): 22941305 Code(s): I10 - ESSENTIAL (PRIMARY) HYPERTENSION Status: Chronic Priority : Low Current Visit: Yes Qualifiers: Hypertension type: essential hypertension Qualified Code(s): I10 - Essential (primary) hypertension (5) COPD (chronic obstructive pulmonary disease) SNOMED Code(s): 55389584 Code(s): J44.9 - CHRONIC OBSTRUCTIVE PULMONARY DISEASE, UNSPECIFIED Status : Chronic Priority: Medium Current Visit: Yes Qualifiers: Chronic bronchitis type: unspecified - Problem List Review Problem List Initiated/Reviewed/Updated: Yes - Plan Plan:: S/P Left knee Arthroplasty - continue PT/OT and rehab. Continue lovenox daily. Counseled on using call light for assistance and any ambulation or transfer. - Continue on tramadol 25mg QID as directed HTN - controlled COPD - Stable HLP - on atorvastatin. Dementia - Continue on current medications. 04/06/18 No changes to plan of care. We will continue to have PT/OT aid in his recovery and rehab. Chronic dementia.
[2018-04-14] MEDS: Donepezil 5 MG Tab PO SCH (19:53)
[2018-04-14] MEDS: Melatonin 3 MG Tab PO SCH (19:54)
[2018-04-14] MEDS: Simvastatin 10 MG Tab PO SCH (19:54)
[2018-04-15] MEDS: Furosemide 20 MG Tab PO SCH (07:29)
[2018-04-15] MEDS: Metoprolol Tartrate 25 MG Tab PO SCH (07:29)
[2018-04-15] MEDS: Cyanocobalamin (Vitamin B12) 1,000 MCG Tab PO SCH (07:30)
[2018-04-15] MEDS: Aspirin 81 MG Tab.EC PO SCH (07:31)
[2018-04-15] MEDS: Tamsulosin 0.4 MG Cap.ER PO SCH (07:32)
[2018-04-15] MEDS: Omeprazole 20 MG Cap.CR PO SCH (07:32)
[2018-04-15] MEDS: Diclofenac Sodium 1% Gel 100 GM Tube TOP SCH (07:33)
--- NOTE | 2018-04-15 08:42 | PCM.DCSUM1 ---
Discharge Summary - Discharge Data Discharge Date: 04/15/18 Discharge Disposition: Home, Self-Care 01 Condition: Good - Discharge Diagnosis/Problem(s) (1) Status post left knee replacement SNOMED Code(s): 9429716947623, 9115185518435 ICD Code: Z96.652 - PRESENCE OF LEFT ARTIFICIAL KNEE JOINT Status: Acute Current Visit: Yes (2) Weakness SNOMED Code(s): 93491397 ICD Code: R53.1 - WEAKNESS Status: Acute Current Visit: Yes (3) Dementia SNOMED Code(s): 30675449 ICD Code: F03.90 - UNSPECIFIED DEMENTIA WITHOUT BEHAVIORAL DISTURBANCE Status: Acute Current Visit: Yes (4) HTN (hypertension) SNOMED Code(s): 04756292 ICD Code: I10 - ESSENTIAL (PRIMARY) HYPERTENSION Status: Chronic Priority : Low Current Visit: Yes Qualifiers: Hypertension type: essential hypertension Qualified Code(s): I10 - Essential (primary) hypertension (5) COPD (chronic obstructive pulmonary disease) SNOMED Code(s): 80398114 ICD Code: J44.9 - CHRONIC OBSTRUCTIVE PULMONARY DISEASE, UNSPECIFIED Status : Chronic Priority: Medium Current Visit: Yes Qualifiers: Chronic bronchitis type: unspecified - Patient Summary/Data Consults: Consultations 03/31/18 15:25 Consult to Super[employer] [CONS] Routine Comment: Physician Instructions: Quantity: Consult to Home Health [CONS] Routine Comment: Physician Instructions: Consult to Infection Prevention [CONS] Routine Comment: Physician Instructions: Consult to Inspector Process [CONS] Routine Comment: Physician Instructions: OT Evaluation and Treatment [CONS] Routine Please Evaluate and Treat. OT Reason for Consult: ADL's This query below is only for informational purposes and is not editable. Admission Diagnosis/Problem: Weakness PT Evaluation and Treatment [CONS] Routine Please Evaluate and Treat. PT Reason for Consult: Strengthening This query below is only for informational purposes and is not editable. Admission Diagnosis/Problem: Weakness - Discharge Plan Prescriptions/Med Rec: Ferrous Gluconate [Iron] 240 mg PO DAILY #60 tablet Home Medications: Home Meds Acetaminophen [Tylenol] 650 mg PO Q4HR PRN 03/31/18 [History] Aspirin [Adult Low Dose Aspirin EC] 81 mg PO DAILY 03/31/18 [History] Cyanocobalamin (Vitamin B-12) [B-12] 1,000 mcg PO DAILY 03/31/18 [History] Diclofenac Sodium 4 gm TP QID 03/31/18 [History] Donepezil [Aricept] 10 mg PO BEDTIME 03/31/18 [History] Furosemide 20 mg PO DAILY 03/31/18 [History] Magnesium Hydroxide [Milk of Magnesia] 30 ml PO DAILY PRN 03/31/18 [History] Melatonin 3 mg PO BEDTIME 03/31/18 [History] Meloxicam 15 mg PO DAILY 03/31/18 [History] Metoprolol Tartrate 12.5 mg PO BID 03/31/18 [History] Omeprazole [priLOSEC OTC] 20 mg PO DAILY 03/31/18 [History] Simvastatin [Zocor] 10 mg PO BEDTIME 03/31/18 [History] Triamcinolone Acetonide [IJD: Triamcinolone Acetonide 0.1% Crm] 1 gm .XX BID 12/18 [History] Ferrous Gluconate [Iron] 240 mg PO DAILY #60 tablet 04/15/18 [Rx] Tamsulosin [Flomax] 0.4 mg PO DAILY cap.er 04/15/18 [Rx] - Discharge Summary/Plan Comment DC Time >30 min.: Yes Discharge Summary/Plan Comment: Patient to be discharged to Daughter who will be travelling to [place] to see the surgeon for follow up and further management and care. Family plan for Mr. Hicks to live with grand-daughter in [place]. All meds continued except for Lovenox course has concluded and additional meds include flomax and iron supplementation. - General Info Date of Service: 04/15/18 Functional Status: Reports: Pain Controlled, Tolerating Diet - Review of Systems General: Reports: Weakness HEENT: Reports: No Symptoms Pulmonary: Reports: No Symptoms Cardiovascular: Reports: No Symptoms Gastrointestinal: Reports: No Symptoms Genitourinary: Reports: No Symptoms Musculoskeletal: Reports: No Symptoms Skin: Reports: No Symptoms Neurological: Reports: Weakness - Patient Data Vitals - Most Recent: Last Vital Signs Temp 36.4 C 04/15/18 07:34 Pulse 63 04/15/18 07:34 Resp 18 04/15/18 07:34 BP 129/59 L 04/15/18 07:34 Pulse Ox 96 04/15/18 07:34 Weight - Most Recent: 71.486 kg Med Orders - Current: Current Medications Acetaminophen (Tylenol) 650 mg PO Q4HR PRN PRN Reason: Pain Last Admin: 04/13/18 18:07 Dose: 650 mg Aspirin (Halfprin) 81 mg PO DAILY [facility] Last Admin: 04/15/18 07:31 Dose: 81 mg Cyanocobalamin (Vitamin B12) 1,000 mcg PO DAILY [facility] Last Admin: 04/15/18 07:30 Dose: 1,000 mcg Diclofenac Sodium (Voltaren 1% Gel) 100 gm TOP QID [facility] Last Admin: 04/15/18 07:33 Dose: Not Given Donepezil HCl (Aricept) 10 mg PO BEDTIME [facility] Last Admin: 04/14/18 19:53 Dose: 10 mg Furosemide (Lasix) 20 mg PO DAILY [facility] Last Admin: 04/15/18 07:29 Dose: 20 mg Magnesium Hydroxide (Milk Of Magnesia) 30 ml PO DAILY PRN PRN Reason: Constipation Melatonin (Melatonin) 3 mg PO BEDTIME [facility] Last Admin: 04/14/18 19:54 Dose: 3 mg Meloxicam (Mobic) 7.5 mg PO DAILY [facility] Last Admin: 04/15/18 07:31 Dose: 7.5 mg Metoprolol Tartrate (Lopressor) 12.5 mg PO BID [facility] Last Admin: 04/15/18 07:29 Dose: 12.5 mg Omeprazole (Omeprazole) 20 mg PO ACBREAKFAST [facility] Last Admin: 04/15/18 07:32 Dose: 20 mg Simvastatin (Zocor) 10 mg PO BEDTIME [facility] Last Admin: 04/14/18 19:54 Dose: 10 mg Tamsulosin HCl (Flomax) 0.4 mg PO DAILY [facility] Last Admin: 04/15/18 07:32 Dose: 0.4 mg Tramadol HCl (Ultram) 50 mg PO Q6H PRN PRN Reason: Pain Last Admin: 04/11/18 17:32 Dose: 50 mg Triamcinolone Acetonide (Triamcinolone Acetonide 0.1% Crm) 0 gm TOP BID PRN PRN Reason: Dryness Discontinued Medications Acetaminophen (Tylenol) Confirm Administered Dose 650 mg .ROUTE .STK-MED ONE Stop: 04/13/18 18:06 Last Admin: 04/13/18 19:29 Dose: Not Given Diclofenac Sodium (Voltaren 1% Gel) 0 gm TOP QID [facility] Last Admin: 04/01/18 20:12 Dose: Not Given Donepezil HCl (Aricept) Confirm Administered Dose 10 mg .ROUTE .STK-MED ONE Stop: 04/02/18 19:26 Last Admin: 04/02/18 20:09 Dose: Not Given Enoxaparin Sodium (Lovenox) 40 mg SUBCUT DAILY [facility] Stop: 04/14/18 08:01 Last Admin: 04/14/18 07:21 Dose: 40 mg Lorazepam (Ativan) 1 mg PO ONETIME ONE Stop: 04/05/18 19:11 Last Admin: 04/05/18 19:30 Dose: 1 mg Tamsulosin HCl (Flomax) 0.4 mg PO PCBREAKFAST [facility] Last Admin: 04/07/18 09:29 Dose: 0.4 mg Triamcinolone Acetonide (Triamcinolone Acetonide 0.1% Crm) 0 gm TOP BID [facility] Stop: 04/01/18 00:08 Last Admin: 03/31/18 20:14 Dose: Not Given Tuberculin PPD (Aplisol) 5 unit IDERM ONETIME ONE Stop: 03/31/18 15:26 Last Admin: 03/31/18 22:44 Dose: Not Given Tuberculin PPD (Aplisol) 5 unit IDERM ONETIME ONE Stop: 04/01/18 10:01 Last Admin: 04/01/18 08:59 Dose: 5 unit - Exam General: Reports: Alert, Cooperative. Denies: Oriented HEENT: Reports: Pupils Equal, Pupils Reactive, EOMI Neck: Reports: Supple Lungs: Reports: Clear to Auscultation, Normal Respiratory Effort Cardiovascular: Reports: Regular Rate, Regular Rhythm GI/Abdominal Exam: Normal Bowel Sounds Extremities: Normal Inspection, Normal Range of Motion, Non-Tender Skin: Reports: Warm, Dry, Intact Neurological: Reports: No New Focal Deficit Psy/Mental Status: Reports: Alert, Normal Affect, Normal Mood
[2018-04-15] MEDS ORDERED: Enoxaparin 40 MG/0.4 ML Syringe SUBCUT ONE (09:00)
[2018-04-15] MEDS ORDERED: Enoxaparin 40 MG/0.4 ML Syringe ONE (09:06)
[2018-04-15] MEDS ORDERED: Acetaminophen 325 MG Tab ONE (09:06)
== END 2018-04-15 09:18 | disposition home or self-care (01) | DRG 948 ==
LOC: LB.MS 08:52 → UNDOADMIN 08:52 → LB.MS 15:25
PROVIDERS: ADMIT Family Medicine; ATTEND Family Medicine
DX: R53.1 Weakness (principal); Z47.1 Aftercare following joint replacement surgery; Z96.652 Presence of left artificial knee joint; Z98.890 Other specified postprocedural states; F03.90 Unspecified dementia, unspecified severity, without behavioral disturbance, psychotic disturbance, mood disturbance, and anxiety; I10 Essential (primary) hypertension; J44.9 Chronic obstructive pulmonary disease, unspecified; Z11.1 Encounter for screening for respiratory tuberculosis; Z87.891 Personal history of nicotine dependence; Z79.82 Long term (current) use of aspirin; E78.5 Hyperlipidemia, unspecified
CPT/HCPCS: 36415; 51798; 80053; 81001; 85025; 86580; 97110-GO; 97110-GP; 97116-GP; 97161-GP; 97165-GO; 97530-GO; 97530-GP; 97535-GO; A9270-GY; J1650